=== PATIENT | female | born 1955 | race Caucasian/White ===

== ENCOUNTER 2016-11-24 15:13 | Inpatient (IN) | payer MEDICAID, SELFPAY ==
[~2016-11-24] VITALS: Ht 154.9 cm; Wt 101.7 kg
[2016-11-24 03:24] VITALS: BP 111/56
[2016-11-24] MEDS ORDERED: SODIUM CHLORIDE FLUSH 10ML SYR IVF ONE (15:30)
[2016-11-24] MEDS ORDERED: ASPIRIN 81 MG TABLET CHEW PO ONE (15:30)
[2016-11-24] MEDS ORDERED: ASPIRIN 81 MG TABLET CHEW ONE (15:57)
[2016-11-24] MEDS ORDERED: ACETAMINOPHEN 500 MG TABLET ONE (15:57)
[2016-11-24] MEDS ORDERED: ACETAMINOPHEN 500 MG TABLET PO ONE (16:00)
[2016-11-24] MEDS ORDERED: SODIUM CHLORIDE 0.9% 1,000ML IVBOLUS ONE (16:00)
[2016-11-24 16:19] LABS: ASPARTATE AMINO TRANSFERASE 7 U/L (15-37); BLOOD UREA NITROGEN 40 mg/dL (7-18)
[2016-11-24 16:24] LABS: IS PT STATUS REG ER OR PRE ER? YES
[2016-11-24] MEDS ORDERED: LEVO25TA4 PO (16:30)
[2016-11-24] MEDS ORDERED: ROSU5TAB PO (16:30)
[2016-11-24] MEDS ORDERED: POLYETHYLENE GLYCOL 17 GM PACKET PO PRN (17:00)
[2016-11-24] MEDS ORDERED: SODIUM CHLORIDE FLUSH 10ML SYR IVF PRN (17:00)
[2016-11-24] MEDS ORDERED: ACETAMINOPHEN 325 MG TABLET PO PRN (17:00)
[2016-11-24] MEDS ORDERED: ONDANSETRON 2MG/ML, 2ML IVP PRN (17:00)
[2016-11-24] MEDS ORDERED: MORPHINE SULFATE 4 MG/ML, 1ML IVPush PRN (17:00)
[2016-11-24] MEDS ORDERED: DIPHENHYDRAMINE 12.5MG/5ML, 10ML UDC PO ONE (17:30)
[2016-11-24] MEDS ORDERED: HYDROcodone/APAP 5/325 TABLET ONE (18:43)
[2016-11-24] MEDS ORDERED: HEPARIN 5,000 UNITS/ML, 1ML ONE (18:43)
[2016-11-24] MEDS: HYDROcodone/APAP 5/325 TABLET PO PRN (18:47)
[2016-11-24] MEDS: HEPARIN 5,000 UNITS/ML, 1ML SQ SCH (18:48)
[2016-11-24] MEDS ORDERED: CINA30TA PO (20:21)
[2016-11-24] MEDS ORDERED: DIAZ10TA PO (20:21)
[2016-11-24] MEDS ORDERED: HYDR-3307 PO (20:21)
[2016-11-24] MEDS ORDERED: SEVE800T PO (20:21)
[2016-11-24] MEDS: SEVELAMER 800MG TABLET PO SCH (22:00)
[2016-11-25] MEDS: HYDROcodone/APAP 5/325 TABLET PO PRN ×4 (00:34→22:13)
[2016-11-25 05:10] VITALS: BP 111/56
[2016-11-25] MEDS: HEPARIN 5,000 UNITS/ML, 1ML SQ SCH ×3 (06:00→21:25)
[2016-11-25] MEDS: ASPIRIN 325 MG TABLET PO SCH (06:14)
[2016-11-25 06:38] VITALS: BP 113/70
[2016-11-25 06:50] LABS: PTH INTACT INTERPRETATION ** Comment **
[2016-11-25 07:07] LABS: BLOOD UREA NITROGEN 50 mg/dL (7-18); TOTAL IRON BINDING CAPACITY 153 mcg/dL (250-450)
[2016-11-25 08:54] VITALS: BP 106/69
[2016-11-25] MEDS: CINACALCET 30 MG TABLET PO SCH (08:55)
[2016-11-25] MEDS: ARANESP 100 MCG/ML **ESRD SQ ONE ×2 (08:55→09:04)
[2016-11-25] MEDS: SEVELAMER 800MG TABLET PO SCH ×3 (08:55→17:21)
[2016-11-25] MEDS: DIPHENHYDRAMINE 50 MG/ML, 1ML IVPush PRN (10:40)
[2016-11-25 11:51] LABS: PARATHYROID HORMONE INTACT 1262.8 pg/mL (14-72)
[2016-11-25 15:33] VITALS: BP 97/74
[2016-11-25 15:58] VITALS: BP 109/69
[2016-11-25 18:38] VITALS: BP 113/62
[2016-11-25] MEDS ORDERED: DIPHENHYDRAMINE 50 MG/ML, 1ML IVPush ONE ×2 (20:30→23:00)
[2016-11-25] MEDS ORDERED: GABA300C10 PO (22:53)
[2016-11-26 03:30] VITALS: BP 120/79
[2016-11-26] MEDS: HEPARIN 5,000 UNITS/ML, 1ML SQ SCH ×3 (05:27→22:00)
[2016-11-26 05:58] LABS: BLOOD UREA NITROGEN 29 mg/dL (7-18)
[2016-11-26 06:44] VITALS: BP 115/79
[2016-11-26] MEDS: SEVELAMER 800MG TABLET PO SCH ×3 (08:00→16:04)
[2016-11-26] MEDS ORDERED: DIPHENHYDRAMINE 50 MG/ML, 1ML IVPush PRN (09:00)
[2016-11-26] MEDS: ASPIRIN 325 MG TABLET PO SCH (09:34)
[2016-11-26] MEDS: CINACALCET 30 MG TABLET PO SCH (09:34)
[2016-11-26] MEDS: HYDROcodone/APAP 5/325 TABLET PO PRN ×4 (09:35→21:58)
[2016-11-26] MEDS: GABAPENTIN 300 MG CAPSULE PO SCH ×3 (11:04→22:49)
[2016-11-26 13:14] VITALS: BP 126/80
[2016-11-26 14:00] VITALS: BP 118/61
[2016-11-26 19:01] VITALS: BP 105/67
[2016-11-26] MEDS: DIPHENHYDRAMINE 25 MG CAPSULE PO PRN (21:58)
[2016-11-27 01:23] VITALS: BP 99/56
[2016-11-27] MEDS: HEPARIN 5,000 UNITS/ML, 1ML SQ SCH ×3 (06:00→20:30)
[2016-11-27] MEDS: HYDROcodone/APAP 5/325 TABLET PO PRN ×2 (06:07→22:04)
[2016-11-27] MEDS: ASPIRIN 325 MG TABLET PO SCH (06:13)
[2016-11-27 07:42] VITALS: BP 123/75
[2016-11-27] MEDS: SEVELAMER 800MG TABLET PO SCH ×3 (08:00→17:47)
[2016-11-27] MEDS ORDERED: ERGOCALCIFEROL 50,000 UNIT CAPSULE PO SCH (08:00)
[2016-11-27] MEDS: DIPHENHYDRAMINE 50 MG/ML, 1ML IVPush PRN (09:38)
[2016-11-27] MEDS: CINACALCET 30 MG TABLET PO SCH (09:38)
[2016-11-27] MEDS: GABAPENTIN 300 MG CAPSULE PO SCH ×3 (09:38→22:04)
[2016-11-27 14:56] VITALS: BP 111/75
[2016-11-27 19:08] VITALS: BP 100/52
[2016-11-27] MEDS: DIPHENHYDRAMINE 25 MG CAPSULE PO PRN (22:04)
[2016-11-28 01:33] VITALS: BP 115/80
[2016-11-28] MEDS: HEPARIN 5,000 UNITS/ML, 1ML SQ SCH ×3 (05:51→21:29)
[2016-11-28] MEDS: ASPIRIN 325 MG TABLET PO SCH (06:13)
[2016-11-28] MEDS: HYDROcodone/APAP 5/325 TABLET PO PRN ×3 (06:13→21:28)
[2016-11-28 07:13] VITALS: BP 120/76
[2016-11-28 07:52] LABS: HEP B SURF. AB 15.7 mIU/mL (0.0-10.0)
[2016-11-28] MEDS: CINACALCET 30 MG TABLET PO SCH (09:12)
[2016-11-28] MEDS: GABAPENTIN 300 MG CAPSULE PO SCH ×3 (09:12→21:28)
[2016-11-28] MEDS: SEVELAMER 800MG TABLET PO SCH ×3 (09:12→17:21)
[2016-11-28] MEDS: DOCUSATE 100 MG CAPSULE PO PRN (09:18)
[2016-11-28 13:24] VITALS: BP 114/58
[2016-11-28 20:00] VITALS: BP 111/65
[2016-11-28] MEDS: DIPHENHYDRAMINE 25 MG CAPSULE PO PRN (21:28)
[2016-11-29 02:00] VITALS: BP 109/82
[2016-11-29] MEDS ORDERED: TRAZODONE 50MG TABLET PO ONE (02:00)
[2016-11-29] MEDS: HYDROcodone/APAP 5/325 TABLET PO PRN (02:37)
[2016-11-29] MEDS: DOCUSATE 100 MG CAPSULE PO PRN ×2 (05:24→09:02)
[2016-11-29] MEDS: HEPARIN 5,000 UNITS/ML, 1ML SQ SCH ×2 (05:24→12:55)
[2016-11-29] MEDS: ASPIRIN 325 MG TABLET PO SCH (05:24)
[2016-11-29 06:00] LABS: ASPARTATE AMINO TRANSFERASE 8 U/L (15-37); BLOOD UREA NITROGEN 65 mg/dL (7-18)
[2016-11-29 08:00] VITALS: BP 134/72
[2016-11-29] MEDS: CINACALCET 30 MG TABLET PO SCH (08:49)
[2016-11-29] MEDS: SEVELAMER 800MG TABLET PO SCH ×2 (08:49→12:55)
[2016-11-29] MEDS: GABAPENTIN 300 MG CAPSULE PO SCH (08:49)
[2016-11-29] MEDS ORDERED: SEVE800T PO (10:43)
[2016-11-29] MEDS ORDERED: ROSU5TAB PO (10:43)
[2016-11-29] MEDS ORDERED: GABA300C10 PO (10:43)
[2016-11-29] MEDS ORDERED: HYDR-3240 PO (10:43)
[2016-11-29] MEDS ORDERED: LEVO75TA PO (10:43)
[2016-11-29] MEDS ORDERED: CINA30TA PO (10:43)
[2016-11-29] MEDS ORDERED: DIAZ10TA4 PO (10:44)
[2016-11-29] MEDS ORDERED: DIPHENHYDRAMINE 50 MG/ML, 1ML IVPush ONE (11:30)
[2016-11-29 13:29] VITALS: BP 129/79
[2016-11-29] MEDS ORDERED: SODIUM POLYSTYRENE SULFONATE ORAL SUSP PO ONE (14:00)
[2016-12-02] MEDS ORDERED: CEFU250T66 PO (13:46)
== END 2016-11-29 15:18 | disposition home or self-care (01) | DRG 291 ==
LOC: ED 16:45 → EDIP 16:47 → ED 17:28 → 5SO 19:56 → 4EST 11-26 13:59
PROVIDERS: ADMIT Hospitalist; ATTEND Hospitalist
PROC: 5A1D60Z (ICD-10-PCS; principal; 2016-11-25)
DX: I13.2 Hypertensive heart and chronic kidney disease with heart failure and with stage 5 chronic kidney disease, or end stage renal disease (principal); J96.21 Acute and chronic respiratory failure with hypoxia; N18.6 End stage renal disease; I50.43 Acute on chronic combined systolic (congestive) and diastolic (congestive) heart failure; E11.22 Type 2 diabetes mellitus with diabetic chronic kidney disease; Z91.14 Patient's other noncompliance with medication regimen; E78.00 Pure hypercholesterolemia, unspecified; E03.9 Hypothyroidism, unspecified; E78.5 Hyperlipidemia, unspecified; D63.1 Anemia in chronic kidney disease; G89.29 Other chronic pain; Z88.2 Allergy status to sulfonamides; Z88.5 Allergy status to narcotic agent; Z88.8 Allergy status to other drugs, medicaments and biological substances; Z99.2 Dependence on renal dialysis; Z91.19 Patient's noncompliance with other medical treatment and regimen; E21.3 Hyperparathyroidism, unspecified
CPT/HCPCS: 36415; 71010; 80048; 80053; 82306; 82310; 82728; 83540; 83550; 83735; 83880; 83970; 84100; 84484; 85025; 85045; 85610; 86704; 86706; 87340; 93005; 96360; J0882; J1200; J7030; Q0163

== ENCOUNTER 2017-01-08 09:34 | Inpatient (IN) | payer MEDICAID ==
[~2017-01-08] VITALS: Ht 154.9 cm; Wt 102.6 kg
[~2017-01-08 09:34] MED LIST: CEFU250T66 PO; CINA30TA PO; DIAZ10TA PO; DIAZ10TA4 PO; GABA300C10 PO; HYDR-3240 PO; HYDR-3307 PO; LEVO25TA4 PO; LEVO75TA PO; ROSU5TAB PO; SEVE800T PO
[2017-01-08 10:12] LABS: BLOOD UREA NITROGEN 56 mg/dL (7-18)
[2017-01-08 10:16] LABS: IS PT STATUS REG ER OR PRE ER? YES
[2017-01-08 12:47] VITALS: BP 164/82
[2017-01-08] MEDS ORDERED: BISACODYL 10 MG SUPP PR PRN (13:00)
[2017-01-08] MEDS ORDERED: DOCUSATE 100 MG CAPSULE PO PRN (13:00)
[2017-01-08] MEDS ORDERED: ONDANSETRON 2MG/ML, 2ML IVPush PRN (13:00)
[2017-01-08] MEDS ORDERED: ACETAMINOPHEN 325 MG TABLET PO PRN (13:00)
[2017-01-08] MEDS ORDERED: DIAZEPAM 10 MG TABLET PO PRN (13:00)
[2017-01-08] MEDS ORDERED: hydrALAzine 20 MG/ML, 1ML IVPush PRN (13:00)
[2017-01-08] MEDS: HEPARIN 5,000 UNITS/ML, 1ML SQ SCH ×2 (13:00→21:00)
[2017-01-08] MEDS ORDERED: POLYETHYLENE GLYCOL 17 GM PACKET PO PRN (13:00)
[2017-01-08] MEDS: NYSTATIN 500,000 UNITS/5 ML UDC PO SCH ×3 (14:46→21:00)
[2017-01-08] MEDS: CINACALCET 30 MG TABLET PO SCH (14:46)
[2017-01-08] MEDS: SEVELAMER 800MG TABLET PO SCH ×2 (14:46→17:49)
[2017-01-08] MEDS ORDERED: GABAPENTIN 300 MG CAPSULE PO ONE (15:00)
[2017-01-08 15:15] VITALS: BP 142/84
[2017-01-08] MEDS: GABAPENTIN 300 MG CAPSULE PO SCH (20:35)
[2017-01-08] MEDS ORDERED: VANCOMYCIN IV ONE (21:00)
[2017-01-08] MEDS ORDERED: VANCOMYCIN PER PHARMACY MC PRN (21:00)
[2017-01-08] MEDS ORDERED: SODIUM CHLORIDE 0.9% IV ONE (21:00)
[2017-01-08] MEDS ORDERED: PHARMACOKINETIC MONITORING MC PRN (21:00)
[2017-01-08] MEDS ORDERED: PHARMACOKINETIC CONSULTATION MC ONE (21:00)
[2017-01-08] MEDS ORDERED: VANCOMYCIN 1,500 MG in SODIUM CHLORIDE 0.9% 250 ML IV ONE (21:00)
[2017-01-08 21:10] VITALS: BP 145/72
[2017-01-09] MEDS ORDERED: DIAZEPAM 5 MG TABLET ONE (00:07)
[2017-01-09 01:14] VITALS: BP 116/75
[2017-01-09] MEDS: HEPARIN 5,000 UNITS/ML, 1ML SQ SCH ×2 (05:00→13:00)
[2017-01-09] MEDS ORDERED: LEVOTHYROXINE 75 MCG TABLET PO SCH (06:00)
[2017-01-09] MEDS: NYSTATIN 500,000 UNITS/5 ML UDC PO SCH ×2 (06:00→11:44)
[2017-01-09 06:04] LABS: ASPARTATE AMINO TRANSFERASE 6 U/L (15-37); BLOOD UREA NITROGEN 34 mg/dL (7-18)
[2017-01-09 07:49] VITALS: BP 122/80
[2017-01-09] MEDS: SEVELAMER 800MG TABLET PO SCH ×2 (08:00→12:00)
[2017-01-09] MEDS: GABAPENTIN 300 MG CAPSULE PO SCH (11:44)
[2017-01-09] MEDS: CINACALCET 30 MG TABLET PO SCH (11:44)
[2017-01-09 14:19] VITALS: BP 120/86
== END 2017-01-09 15:25 | disposition still patient (30) | DRG 291 ==
LOC: ED 11:13 → EDIP 11:14 → ED 11:43 → 4WST 12:30
PROC: 5A1D00Z (ICD-10-PCS; principal; 2017-01-08)
DX: I13.2 Hypertensive heart and chronic kidney disease with heart failure and with stage 5 chronic kidney disease, or end stage renal disease (principal); J96.21 Acute and chronic respiratory failure with hypoxia; N18.6 End stage renal disease; I50.31 Acute diastolic (congestive) heart failure; N25.81 Secondary hyperparathyroidism of renal origin; E44.0 Moderate protein-calorie malnutrition; Z68.41 Body mass index [BMI] 40.0-44.9, adult; F11.20 Opioid dependence, uncomplicated; J44.9 Chronic obstructive pulmonary disease, unspecified; E78.00 Pure hypercholesterolemia, unspecified; E11.22 Type 2 diabetes mellitus with diabetic chronic kidney disease; E03.9 Hypothyroidism, unspecified; G89.4 Chronic pain syndrome; D63.1 Anemia in chronic kidney disease; Z76.5 Malingerer [conscious simulation]; Z88.1 Allergy status to other antibiotic agents; Z88.5 Allergy status to narcotic agent; Z88.8 Allergy status to other drugs, medicaments and biological substances; Z88.2 Allergy status to sulfonamides; Z99.2 Dependence on renal dialysis; Z91.15 Patient's noncompliance with renal dialysis; Z87.440 Personal history of urinary (tract) infections; Z79.899 Other long term (current) drug therapy; Z99.81 Dependence on supplemental oxygen
CPT/HCPCS: 36415; 71010; 80048; 80053; 80202; 82040; 83735; 83880; 84100; 84484; 85025; 85610; 85730; 93005; J3370; J7050; J7512

== ENCOUNTER 2017-02-02 22:54 | Emergency (ER) | payer MEDICAID ==
[~2017-02-02] VITALS: Ht 154.9 cm; Wt 97.0 kg
[2017-02-02 22:56] VITALS: BP 116/75
[2017-02-03] MEDS ORDERED: SODIUM CHLORIDE FLUSH 10ML SYR IVF ONE
[2017-02-03 00:33] LABS: ASPARTATE AMINO TRANSFERASE 9 U/L (15-37); BLOOD UREA NITROGEN 57 mg/dL (7-18)
[2017-02-03] MEDS ORDERED: DIPHENHYDRAMINE 25 MG CAPSULE ONE ×2 (00:51→01:01)
[2017-02-03 00:52] LABS: IS PT STATUS REG ER OR PRE ER? YES
[2017-02-03] MEDS ORDERED: DIPHENHYDRAMINE 25 MG CAPSULE PO ONE ×2 (01:00→01:30)
== END 2017-02-03 02:04 | disposition home or self-care (01) ==
LOC: ED 23:59
DX: R10.84 Generalized abdominal pain (principal); L29.9 Pruritus, unspecified; I12.9 Hypertensive chronic kidney disease with stage 1 through stage 4 chronic kidney disease, or unspecified chronic kidney disease; E11.22 Type 2 diabetes mellitus with diabetic chronic kidney disease; N18.9 Chronic kidney disease, unspecified; E78.00 Pure hypercholesterolemia, unspecified
CPT/HCPCS: 36415; 71010; 80053; 83690; 83880; 84484; 85025; 93005; 99285; Q0163; Q0177